=== PATIENT | male | born 1980 | race Caucasian/White ===

== ENCOUNTER → 2023-12-31 10:16 | Outpatient (CLI) | payer OTHER, SELFPAY ==
--- NOTE | 2023-12-31 10:22 | DI.RAD.S_ITS ---
PROCEDURE: XR LUMBAR SPINE 2-3V INDICATIONS: BACK PAIN TECHNIQUE: 3 views of the lumbar spine were acquired. COMPARISON: None. FINDINGS: Bones: 5 [id number] vertebrae are present. There is normal bony alignment. No acute vertebral body compression fractures. No suspicious bony lesions. Minimal multilevel lumbar spondylitic changes. Soft tissues: Overlying bowel gas pattern is normal. No suspicious soft tissue calcifications. IMPRESSION: No acute bony abnormality. Minimal multilevel lumbar spondylosis. Dictated by: John Rodriguez M.D. on 12/31/2023 at 11:02 Approved by: John Rodriguez M.D. on 12/31/2023 at 11:03
== END ==
PROVIDERS: Referring Provider Chiropractor; Visit Provider Chiropractor
DX: M54.50 Low back pain, unspecified (principal)
CPT/HCPCS: 72100

== ENCOUNTER → 2024-05-03 08:26 | Outpatient (CLI) | payer OTHER, SELFPAY ==
--- NOTE | 2024-05-03 08:27 | DI.MRI.S_ITS ---
PROCEDURE: MR LUMBAR SPINE WO CON INDICATIONS: LOW BACK PAIN,LUMBAR RADICULOPATHY TECHNIQUE: Noncontrast sagittal T1 spin echo and T2 fast echo, sagittal STIR, and T2 fast spin echo through the lumbar spine. In cases with scoliosis, additional coronal T2 fast spin echo may be performed. COMPARISON: None. FINDINGS: Image quality: Excellent Localizer image: Unremarkable Mild levoscoliosis of the lumbar spine, centered at L3-4. Mild straightening of the lumbar spine. Vertebral body heights are well-maintained. Multilevel disc bulge and disc desiccation. Marrow signal is normal for age. Conus terminates at the level of T12-L1, and is unremarkable. Right neural foraminal stenosis: Mild at L4-5. Moderate at L5-S1. Left neural foraminal stenosis: Mild at L5-S1. Axial images: T12-L1: Disc bulge. No central canal stenosis. L1-2: No central canal stenosis. L2-3: Mild bilateral facet arthropathy. No central canal stenosis. L3-4: Mild bilateral facet arthropathy. No central canal stenosis. L4-5: Disc bulge. Mild bilateral facet arthropathy. No central canal stenosis. L5-S1: Disc bulge, superimposed right paracentral disc extrusion, resulting in complete effacement of the right lateral recess. Mild bilateral facet arthropathy. No central canal stenosis. Visualized sacrum is intact. No abdominal aortic aneurysm. IMPRESSION: 1. Multilevel degenerative changes of the lumbar spine, most pronounced at L5-S1, where there is right paracentral disc extrusion, resulting in complete effacement of the right lateral recess, and moderate right neural foraminal stenosis. Dictated by: Lindsey Hines M.D. on 05/03/2024 at 12:27 Approved by: Lindsey Hines M.D. on 05/03/2024 at 12:35
== END ==
LOC: MRI 08:27
PROVIDERS: PCP Physician Assistant; Referring Provider Physician Assistant; Visit Provider Physician Assistant
DX: M47.26 Other spondylosis with radiculopathy, lumbar region (principal); M47.27 Other spondylosis with radiculopathy, lumbosacral region; M51.16 Intervertebral disc disorders with radiculopathy, lumbar region; M51.17 Intervertebral disc disorders with radiculopathy, lumbosacral region; M48.061 Spinal stenosis, lumbar region without neurogenic claudication; M48.07 Spinal stenosis, lumbosacral region; G89.29 Other chronic pain
CPT/HCPCS: 72148